=== PATIENT | male | born 1950 | race Caucasian/White ===

== ENCOUNTER 2021-09-18 04:24 | Day surgery (SDC) | payer MEDICARE, OTHER ==
[2021-09-14 11:56] VITALS: BMI 23.9
[2021-09-18] MEDS ORDERED: MIDAZOLAM HCL 2 MG/2 ML SINGLE DOSE VIAL ONE (08:59)
[2021-09-18] MEDS ORDERED: PROPOFOL 20 ML ONE (08:59)
[2021-09-18] MEDS ORDERED: ceFAZolin 2 GRAM PREMIX BAG IVPB ONE (09:17)
[2021-09-18] MEDS ORDERED: DEXAMETHASONE SOD PHOSPHATE 4 MG/1 ML VIAL ONE (09:34)
[2021-09-18] MEDS ORDERED: ELECTROLYTE-148 SOLN 1,000 ML IV SCH (10:00)
[2021-09-18 13:13] VITALS: BP 130/68; PULSE 55; TEMP 98.1
== END 2021-09-18 13:13 | disposition home or self-care (01) ==
LOC: JASU-SURG 04:24
PROVIDERS: ATTEND Urology
PROC: 0TF4XZZ Fragmentation in Left Kidney Pelvis, External Approach (ICD-10-PCS; principal; 2021-09-18 09:00)
DX: N20.0 Calculus of kidney (principal)

== ENCOUNTER 2024-04-13 04:49 | Day surgery (SDC) | payer OTHER ==
[2024-04-09 11:00] VITALS: BMI 23.6
[2024-04-13 07:57] VITALS: RESP 16
[2024-04-13] MEDS ORDERED: MIDAZOLAM HCL 2 MG/2 ML SINGLE DOSE VIAL ONE (10:50)
[2024-04-13] MEDS ORDERED: PROPOFOL 60 ML ONE (10:50)
[2024-04-13] MEDS ORDERED: KETOROLAC TROMETHAMINE 30 MG/1 ML VIAL ONE (10:52)
[2024-04-13] MEDS ORDERED: ceFAZolin SODIUM 1 GM VIAL ONE (10:52)
[2024-04-13] MEDS ORDERED: ONDANSETRON 4 MG/2 ML VIAL ONE (10:52)
[2024-04-13] MEDS ORDERED: DEXAMETHASONE SOD PHOSPHATE 4 MG/1 ML VIAL ONE (10:52)
[2024-04-13] MEDS: ceFAZolin SODIUM 1 GM VIAL IVPB ONE (10:57)
[2024-04-13] MEDS ORDERED: ELECTROLYTE-148 SOLN 1,000 ML IV SCH (11:15)
[2024-04-13 12:00] VITALS: BP 111/82; PULSE 55; TEMP 97.7
== END 2024-04-13 12:09 | disposition home or self-care (01) ==
LOC: JASU-SURG 04:49
PROVIDERS: ATTEND Urology
PROC: 0TF4XZZ Fragmentation in Left Kidney Pelvis, External Approach (ICD-10-PCS; principal; 2024-04-13 11:00)
DX: N20.0 Calculus of kidney (principal)